=== PATIENT | female | born 1990 | race African-American/Black ===

== ENCOUNTER → 2024-11-07 11:15 | Outpatient (REF) | payer OTHER, SELFPAY ==
[2024-11-07 19:15] LABS: Rubella Positive
[2024-11-09 10:09] LABS: Quantiferon Mitogen minus NIL 9.99 IU/mL; Quantiferon NIL 0.01 IU/mL; Quantiferon TB Gold Plus Negative (Negative)
== END ==
LOC: OHS 11:15
PROVIDERS: ATTENDING PHYSICIAN Nurse Practitioner Family
DX: Z23 Encounter for immunization (principal)
CPT/HCPCS: 36415; 86480; 86735; 86762; 86765; 86787